=== PATIENT | male | born 1985 ===

== ENCOUNTER 2021-01-01 12:44 | Outpatient (CLI) | payer OTHER | END 2021-01-01 13:32 | disposition home or self-care (01) | LOC: OFIC 805 12:44 | PROVIDERS: ATTEND Otolaryngology | DX: K21.9 Gastro-esophageal reflux disease without esophagitis (principal); J03.80 Acute tonsillitis due to other specified organisms ==

== ENCOUNTER 2023-04-03 05:17 | Day surgery (SDC) | payer OTHER ==
[~2023-04-03 05:17] MED LIST: CIPRO500 MG PO; HIBICLENS118 ML TOP; KETO10TA2 PO; METRONIDAZOLE500 MG PO; NEURONTIN300 MG PO; PERCOCET 5-3251 EACH PO
== END 2023-04-03 10:40 | disposition home or self-care (01) ==
LOC: AMB-ENDOS 05:17
PROVIDERS: ATTEND Surgery
DX: K62.4 Stenosis of anus and rectum (principal); K59.00 Constipation, unspecified; Z20.822 Contact with and (suspected) exposure to COVID-19